=== PATIENT | male | born 1980 | race Caucasian/White ===

== ENCOUNTER 2020-09-14 13:03 | Emergency (ER) | payer OTHER ==
[~2020-09-14] VITALS: Ht 177.8 cm; Wt 99.8 kg
[2020-09-14] MEDS ORDERED: OXYC5 PO (15:13)
[2020-09-14] MEDS ORDERED: CEPH500 PO (15:13)
== END 2020-09-14 18:31 | disposition home or self-care (01) ==
LOC: ER 13:03
DX: S81.812A Laceration without foreign body, left lower leg, initial encounter (principal); Z88.6 Allergy status to analgesic agent; Z23 Encounter for immunization; W29.3XXA Contact with powered garden and outdoor hand tools and machinery, initial encounter
CPT/HCPCS: 12035; 90471; 90714; 96365-59; 96375-59; 99283-25; A9270; J0690; J1170; J2405

== ENCOUNTER → 2021-06-11 | Outpatient (CLI) | payer OTHER ==
[~2021-06-11] MED LIST: CEPH500 PO; OXYC5 PO
== END | disposition home or self-care (01) ==
LOC: LAB 13:32 → LAB SHORT 13:32
DX: B35.3 Tinea pedis (principal)
CPT/HCPCS: 87210